=== PATIENT | female | born 1965 | race Caucasian/White ===

== ENCOUNTER → 2020-03-14 | Outpatient (CLI) | payer OTHER ==
[~2020-03-14] MED LIST: BENTYL 20MG TAB20 MG PO; CYMBALTA30 MG PO; FLAGYL500 MG PO; HYDROCHLOROTHIA25 MG PO; LEVAQUIN500 MG PO; LISINOPRIL40 MG PO; METFORMIN HCL1000 MG PO; NEURONTIN 300300 MG PO; PROTONIX 20 MG20 MG PO; VITAMIN D250000 UNIT PO; ZOFRAN4 MG PO
== END ==
LOC: KOH-I 13:22
DX: R91.8 Other nonspecific abnormal finding of lung field (principal)
CPT/HCPCS: 71250

== ENCOUNTER → 2021-10-16 | Day surgery (SDC) | payer OTHER ==
[~2021-10-16] MED LIST changes: +ENALAPRIL-HCTZ1 EACH PO; +HYDROXYZINE HCL25 MG PO; +JARDIANCE10 MG PO; +OMEPRAZOLE40 MG PO; +SERTRALINE HCL50 MG PO; +TRULICITY3 MG/0.5 M SQ
== END | disposition home or self-care (01) ==
LOC: OR 06:37
DX: K29.50 Unspecified chronic gastritis without bleeding (principal); K57.30 Diverticulosis of large intestine without perforation or abscess without bleeding; R19.7 Diarrhea, unspecified; I10 Essential (primary) hypertension; E78.5 Hyperlipidemia, unspecified; K21.9 Gastro-esophageal reflux disease without esophagitis; E11.9 Type 2 diabetes mellitus without complications; M19.90 Unspecified osteoarthritis, unspecified site; Z79.84 Long term (current) use of oral hypoglycemic drugs; Z79.899 Other long term (current) drug therapy; Z87.891 Personal history of nicotine dependence
CPT/HCPCS: 82962